=== PATIENT | female | born 1970 | race Caucasian/White ===

== ENCOUNTER 2023-11-21 21:20 | Emergency (ER) | payer OTHER, SELFPAY ==
[2023-11-21 21:27] VITALS: BP 139/98
[2023-11-21 21:57] LABS: % Basophils 0.7 % (0-2); % Eosinophils 3.3 % (0-6); % Immature Granulocytes 0.2 % (0-0.5); % Monocytes 10.5 % (1.7-9.3); % Neutrophils 56.3 % (42.2-75.2); Absolute Basophils 0.1 10^3/uL (0-0.2); Absolute Eosinophils 0.3 10^3/uL (0-0.7); Absolute Lymphocytes 2.6 10^3/uL (1.2-3.4); Absolute Monocytes 0.9 10^3/uL (0.1-0.6); Hematocrit 38.9 % (37.0-47.0); Hemoglobin 13.6 g/dL (12.0-16.0); Mean Corpuscular Hgb 29.8 pg (27.0-31.0); Mean Corpuscular Volume 85.3 fL (81.0-99.0); Mean Platelet Volume 8.5 fL (7.4-10.4); Nucleated Red Blood Cells % 0 %; Platelet Count 366 10^3/uL (130-400); Red Blood Cell Count 4.56 10^6/uL (4.20-5.40); Red Cell Dist. Width 13.1 % (11.5-14.5); White Blood Cell Count 8.9 10^3/uL (4.8-10.8)
[2023-11-21 22:17] LABS: ALT (SGPT) 21 U/L (0-35); AST (SGOT) 23 U/L (14-36); Albumin 4.2 g/dl (3.5-5.0); Alkaline Phosphatase 70 U/L (38-126); Blood Urea Nitrogen 16 mg/dl (7-17); Calcium 9.7 mg/dl (8.4-10.2); Carbon Dioxide 28 mmol/L (22-30); Chloride 103 mmol/L (98-107); Glucose 90 mg/dl (70-99); Potassium 4.3 mmol/L (3.5-5.1); Sodium 138 mmol/L (135-145); Total Bilirubin 0.2 mg/dl (0.2-1.3); Total Protein 6.8 g/dl (6.3-8.2); eGFR > 60.00
[2023-11-21 22:28] LABS: Troponin I < 0.012 ng/ml
--- NOTE | 2023-11-21 23:34 | ED.GENMED ---
History of Present Illness
<BILLY Friend - Last Filed: 11/22/23 05:37>
General
Chief Complaint: Chest Pain
Source: patient and significant other ( )
Time Seen by Provider: 11/21/23 23:34
History of Present Illness
History of Present Illness:
A 53 yo female with a PMH of HTN x 1 presents to the ED for chest pain x 6 hours. Patient stated that the pain began this afternoon and is made worse by coughing. She describes it as deep and sharp under the left breast around the 5th ICS between
the mid clavicular line and Anterior axillary line without radiation. She took 2 of her husbands baby aspirin without relief. She previously had a took infection 2 weeks ago for which she received an unknown abx and steroids. She also admitted to
nausea that began today along with the new chest pain. She also stated that she has has a 'hacking' cough since 11/16/2023 with some sputum production of unknown color during the night. She admit to taking Robitussin consistently to suppress the
cough. She also admits to intermittent nasal congestion of which the mucus has been clear. She denies any pleuritic chest pain, SOB, rhinorrhea, ear fullness.
She has a PMH of stomach ulcers x 30 years ago. She stated that she has had high blood pressure over the last year, but is not currently on any medication.
Past History
<BILLY Friend - Last Filed: 11/22/23 05:37>
Past History
ED Past Medical History: HTN (unknown if officially diagnosed. ) and Other (PUD x 30 years ago )
ED Past Surgical History: None
Social History
Tobacco: Non-smoker
Alcohol: Occasional
Drug: None
Personal:
Living: with family
Review of Systems
<BILLY Friend - Last Filed: 11/22/23 05:37>
Review of Systems
Constitutional: Reports no symptoms
EENT: Reports sore throat and other (nasal congestion)
Respiratory: Reports cough; Denies trouble breathing
Cardiac: Reports chest pain; Denies diaphoresis
ABD/GI: Reports nausea
Musculoskeletal: Reports no symptoms
Skin: Reports no symptoms
Neurological: Reports no symptoms
Phy Exam
<Marvin Monge [facility] - Last Filed: 11/22/23 05:37>
General Physical Exam
General Presentation: well appearing and no apparent distress
General age: appears stated age
General Skin: warm and dry
General Habitus: normal
General Mental: alert
General Hydration: appears well hydrated
ENT Exam
ENT Exam: TM's normal and pharynx normal
Cardiovascular Exam
Cardiovascular Exam: regular rate/rhythm, no gallop and no murmur
Pulmonary Exam
Pulmonary Exam: lungs clear, no respiratory distress, no rales, no crackles and no rhonchi
Cough: hacking cough
Gastrointestinal Exam
Palpation: generalized: Other (mild epigastric pain )
Auscultation of Abdomen: normal
Scores
<Marvin Monge [facility] - Last Filed: 11/22/23 05:37>
Heart Score for Chest Pain Patients
STEMI patient?: No
History: Slightly or Non-Suspicious
ECG: Normal
Age: >45 - <65 years
Risk Factors: 1 or 2 Risk Factors
Troponin: </= Normal Limit
Heart Score for Chest Pain Patients: 2
Heart Score Risk: 2.5% MACE over next 6 weeks
PE Wells Score
Pulmonary Embolism Risk Score: 0
Probability of PE: Pt is low risk
PERC Rule Criteria
PERC Score: 1
PE can be excluded by PERC: No
<Rere Courtney DO - Last Filed: 11/22/23 04:29>
PE Wells Score
Symptoms of DVT: No
No alternative diagnosis better explains the illness: No
Tachycardia with pulse > 100: No
Immobilization (>=3 days) or surgery within previous 4 weeks: No
Prior history of DVT or pulmonary embolism: No
Presence of hemoptysis: No
Presence of malignancy: No
Pulmonary Embolism Risk Score: 0
Probability of PE: Pt is low risk
PERC Rule Criteria
Age <50 years: No
HR <100 bpm: Yes
Room air oxygen sat >94%: Yes
History of DVT or PE: No
Recent trauma or surgery: No
Hemoptysis: No
Exogenous estrogen: No
Clinical signs suggestive of DVT: No
: No
Considered low risk for PE: Yes
PERC Score: 1
PE can be excluded by PERC: No
Course
<Marvin Monge, [facility] - Last Filed: 11/22/23 05:37>
Orders/Labs/Results
Orders:
Orders
11/21/23 21:30
Electrocardiogram (*1) Urgent
Reason for Study: Chest Pain
EKG- Treatment ONCE
11/21/23 21:39
Complete Blood Count/With Diff Urgent
Comprehensive Metabolic Panel Urgent
Troponin I Urgent
11/22/23 01:26
Bordetella Pertussis IgA,G,M [S] Urgent
COVID-19 Antigen Urgent
Source: Nasal Swab
D-Dimer Urgent
Troponin I Urgent
11/22/23 02:52
CR Chest - 2 Views Urgent
Comment:
Reason For Exam: cough, acute R ant CP
Abnormal Lab Results
11/21/23
21:39
Absolute Monos (auto) 0.9 H 10^3/uL
(0.1-0.6)
Monocytes % 10.5 H %
(1.7-9.3)
11/21/23 21:39
11/21/23 21:39
Vital Signs
Initial and Last Documented VS:
Initial Vital Signs
Temp Pulse Resp BP Pulse Ox
98.1 F 68 16 139/98 99
11/21/23 21:27 11/21/23 21:27 11/21/23 21:27 11/21/23 21:27 11/21/23 21:27
Last Documented Vital Signs
Temp Pulse Resp BP Pulse Ox
98.1 F 71 16 121/76 96
11/21/23 21:27 11/22/23 04:36 11/22/23 04:36 11/22/23 04:36 11/22/23 04:36
<Rere Courtney, DO - Last Filed: 11/22/23 04:29>
Orders/Labs/Results
Orders:
Orders
11/21/23 21:30
Electrocardiogram (*1) Urgent
Reason for Study: Chest Pain
EKG- Treatment ONCE
11/21/23 21:39
Complete Blood Count/With Diff Urgent
Comprehensive Metabolic Panel Urgent
Troponin I Urgent
11/22/23 01:26
Bordetella Pertussis IgA,G,M [S] Urgent
COVID-19 Antigen Urgent
Source: Nasal Swab
D-Dimer Urgent
Troponin I Urgent
11/22/23 02:52
CR Chest - 2 Views Urgent
Comment:
Reason For Exam: cough, acute R ant CP
Abnormal Lab Results
11/21/23
21:39
Absolute Monos (auto) 0.9 H 10^3/uL
(0.1-0.6)
Monocytes % 10.5 H %
(1.7-9.3)
11/21/23 21:39
10/16/24 21:39
Vital Signs
Initial and Last Documented VS:
Initial Vital Signs
Temp Pulse Resp BP Pulse Ox
98.1 F 68 16 139/98 99
11/21/23 21:27 11/21/23 21:27 11/21/23 21:27 11/21/23 21:27 11/21/23 21:27
Last Documented Vital Signs
Temp Pulse Resp BP Pulse Ox
98.1 F 71 16 121/76 96
11/21/23 21:27 11/22/23 04:36 11/22/23 04:36 11/22/23 04:36 11/22/23 04:36
<Rere Courtney DO - Last Filed: 11/22/23 04:29>
*Radiology
Radiology exam reviewed: preliminary read by ED provider (Chest x-ray is unremarkable.)
*Pulse Oximetry
Patient hypoxic: no
*EKG
Interpreted by ED Provider?: Yes
Interpretation: normal
Comparison EKG: no comparison EKG present
Rate: normal
Rhythm: sinus
[place]: normal axis
Interval: normal interval
QRS Pattern: normal QRS
Ischemia: no ischemia
*Group Director Experience Interpretation
Rate: normal
Interpretation: normal
Rhythm: sinus
*Critical Care Note
Total Time (30-74mins, 75-104mins- exclusive of procedures): Not Applicable
ED Attending Note
<BILLY Friend - Last Filed: 11/22/23 05:37>
-
Portions of this chart may have been created with voice recognition software.� Occasional wrong word or��sound alike� substitutions may have occurred due to the inherent limitations of voice recognition software.
<Rere Courtney DO - Last Filed: 11/22/23 04:29>
ED Attending Note
Patient seen and examined by attending physician: Yes
I performed the substantive portion of visit, reviewed & personally made and approve the management plan that is documented in note by myself or DALE.: Yes
ED Attending Note:
This is a 53-year-old woman with history of MVP, elevated blood pressure without definitive diagnosis of hypertension, remote history of stomach ulcers over 30 years ago.
She complains of focal dental pain related to occult tooth fracture that initially began over 3 weeks ago. She has been following with dentist/oral surgeon and initial surgical correction 3 weeks ago was abandoned due to focal infection for which
she was placed on a 2-week course of antibiotic and a Medrol Dosepak. Antibiotic completed 1 week ago. She does continue with tooth pain but no focal facial swelling and pain has not worsened.
More recently however she complains of URI symptoms, cough, congestion, mild sore throat that began 1 day after air travel to and from [facility] for which she returned November 12. She has been taking [id number] cough and cold medicines
without significant improvement. Cough is worse at nighttime with intermittent episodes of protracted coughing with mild shortness of breath. Cough is primarily dry in nature, occasionally productive at nighttime. She denies hemoptysis.
Tonight around 8 PM she developed somewhat abrupt onset of right lower anterior chest pain, burning and pressure in nature associated with mild nausea. No definitive aggravating nor relieving factors. She denies increased pain with deep breath nor
with cough. No history of similar episodes of pain. She did take 2 low-dose aspirin.
She has had some right mid to right lower quadrant pain only noted with coughing, burning in nature, no associated abdominal fullness nor mass.
Right-sided chest pain has resolved since arrival to the ED. Currently denies abdominal pain.
She has had no leg pain or swelling. She has not had a fever.
Several home COVID tests have been negative the last of which a few days ago.
No close contacts with similar symptoms.
She does admit that cough has significantly improved since arrival to the ED.
GENERAL: Alert , in no apparent distress. 1 brief dry cough noted during exam. Able to speak in full sentences. No dyspnea. is accompanying. Vital signs reviewed, all within normal limits.
EYE: anicteric
NECK: Supple, nontender, no meningismus, no significant adenopathy. No JVD.
ENT: posterior pharynx is clear, oral mucosa is moist. TM clear b/l, nares have mildly boggy pale blue turbinates without rhinorrhea.
CARDIAC: Regular rate and rhythm. 2/6 holosystolic murmur left sternal border. No rub. No chest wall tenderness.
LUNGS: no acute respiratory distress, scant end expiratory wheeze at bases, clears with cough.
ABDOMEN: Soft, nondistended, without focal tenderness, no r/g, no cvat. normoactive BS. No palpable masses. No palpable hernia defects.
NEUROLOGICAL: Alert and oriented x3, no focal neuro deficits.
SKIN: Warm and dry, normal color, skin intact. No rash.
MUSCULOSKELETAL: No C/C/E. peripheral pulses are full and equal b/l. No palpable tenderness.
PSYCH: Normal and appropriate interaction.
Concern for pneumonia, pleurisy, pleural effusion, ACS, GERD, gastritis, biliary colic. As patient recently returned from a trip to [employer]/air travel, must also consider PE.
With history of intermittent prolonged coughing fits with mild shortness of breath, pertussis is a consideration as well. Patient is not up-to-date with Tdap.
She does have history of elevated blood pressure apparently running 150s to 160s systolic over the past several months, similar readings on home blood pressure monitoring. Here however blood pressure within normal limits.
She does follow with a mathematician at [facility] due to history of MVP. She notes that the mathematician recommend she start a statin but has not done this as yet.
She herself has no history of CAD and no significant family history of CAD. Questionable history of DVT in her grandfather otherwise no known family history of thromboembolism.
EKG is unremarkable, normal sinus rhythm in the 60s, no acute ST-T wave abnormalities.
Initial labs are unremarkable including negative troponin.
Will plan to repeat troponin, will check D-dimer and will check pertussis as well as COVID testing for completeness sake.
If D-dimer elevated will plan for CT of the chest/PE study. If normal will check chest x-ray.
Currently asymptomatic and comfortable.
11/22/2023 0427 AM
Patient remains comfortable, sleeps when undisturbed. Cough has resolved, no further chest pain nor abdominal discomfort.
Repeat troponin remains negative. D-dimer is negative. COVID 19 antigen is negative.
Chest x-ray is unremarkable.
A bedside abdominal ultrasound shows no evidence of cholelithiasis nor cholecystitis. Unremarkable right kidney without hydronephrosis.
At this point unclear as to cause of right-sided chest pain but thus far exam and workup are unremarkable.
I suspect acute bronchitis is viral in nature and overall improving. Pertussis testing is pending but as symptoms improving we will hold off on antibiotic.
Recommend continuing with supportive measures.
Follow-up with PCP and recommend follow-up with her mathematician at [facility].
Return precautions discussed.
Discharge Plan
Departure
Patient Disposition: Home (Routine Discharge)
Date of Disposition: 11/22/23
Time of Disposition: 04:25
Patient with high blood pressure during this ER visit?: No
Condition: Good
Discharge Problem:
Acute R sided chest pain, Acute bronchitis
Instructions: Bronchitis, Adult ED, Chest Pain NON-[facility] Follow Up
Referrals:
David Martin DO [Family Provider] - Call in 1-3 days for appt
Interventions
Interventions:
*Risk Screen - Suicide Last Done: 11/21/23 21:27
*General Assessment Last Done: 11/22/23 00:05
*Neglect/Abuse Screening Last Done: 11/21/23 21:27
ED- Fall Risk Assessment Last Done: 11/22/23 00:05
*ED COVID-19 Vaccine History Last Done: 11/22/23 00:05
*Nursing Disposition Last Done: 11/22/23 04:46
ED- Cardiac Assessment Last Done: 11/22/23 00:05
Discharge Date and Time
Discharge Date/Time: 11/22/23 04:47
Print Language: GREENLANDIC
[2023-11-22] VITALS (7 sets, daily range): BP systolic 107–138; BP diastolic 74–88; BMI 23.6
[2023-11-22 01:54] LABS: COVID-19 Antigen Negative (Negative)
[2023-11-22 02:04] LABS: Troponin I < 0.012 ng/ml
[2023-11-22 02:31] LABS: D-Dimer < 0.27 ug/mlFEU (0.00-0.50)
== END 2023-11-22 04:47 | disposition home or self-care (01) ==
LOC: EMR 21:20
PROVIDERS: Emergency Medicine; EMERGENCY PHYSICIAN Emergency Medicine; FAMILY PHYSICIAN Family Medicine
DX: J20.9 Acute bronchitis, unspecified (principal); R07.89 Other chest pain; Z87.11 Personal history of peptic ulcer disease
CPT/HCPCS: 99284; 71046; 80053; 84484; 85025; 85379; 86615; 87811; 93005